=== PATIENT | female | born 2000 | race Hispanic/Latino ===

== ENCOUNTER 2023-01-12 13:47 | Outpatient (CLI) | payer BC | END 2023-01-12 13:48 | disposition home or self-care (01) | LOC: CSHULT 13:47 | PROVIDERS: ATTEND Nurse Practitioner Women's Health | DX: O09.892 Supervision of other high risk pregnancies, second trimester (principal); Z3A.34 34 weeks gestation of pregnancy | CPT/HCPCS: 76805 ==

== ENCOUNTER 2023-02-20 19:00 | Inpatient (IN) | payer BC ==
[2023-02-21] MEDS ORDERED: Misoprostol 200 MCG TAB PR PRN (00:04)
[2023-02-21] MEDS ORDERED: Lidocaine 1% (PF) 30 ML VIAL SC PRN (00:04)
[2023-02-21] MEDS ORDERED: hydrALAZINE 20 MG/ML VIAL SLOW IVP PRN (00:04)
[2023-02-21] MEDS ORDERED: Promethazine HCl 25 MG/ML VIAL IM PRN ×2 (00:04→21:28)
[2023-02-21] MEDS ORDERED: Methylergonovine 0.2 MG/ML VIAL IM PRN (00:04)
[2023-02-21] MEDS ORDERED: Ibuprofen 800 MG TAB PO PRN (00:04)
[2023-02-21] MEDS ORDERED: Diphenoxylate HCl/Atropine Tablet PO PRN (00:04)
[2023-02-21] MEDS ORDERED: HYDROcodone/Acetaminophen 5/325 mg Tablet PO PRN (00:04)
[2023-02-21] MEDS ORDERED: Tranexamic Acid 1,000 MG/10 ML VIAL IVP PRN (00:04)
[2023-02-21] MEDS ORDERED: Ondansetron PF 4 MG/2 ML Vial IVP PRN ×2 (00:04→21:28)
[2023-02-21] MEDS ORDERED: Acetaminophen 500 MG TAB PO PRN (00:04)
[2023-02-21] MEDS ORDERED: Carboprost 250 MCG/ML AMP IM PRN (00:04)
[2023-02-21] MEDS ORDERED: Misoprostol 100 MCG TAB ONE (00:17)
[2023-02-21 01:12] LABS: Mean Corpuscular HGB CONC 34.9 g/dL (32.0-36.0); Mean Corpuscular Hemoglobin 30.1 pg (27.0-33.0); Mean Corpuscular Volume 86.1 fl (81.6-98.3); Mean Platelet Volume 11.2 fl (7.4-10.4); Platelet Count 269 10x3/uL (150-450); RBC Distribution Width 12.6 % (11.5-14.5); Red Blood Cell (RBC) Count 4.32 10x6/uL (3.90-5.03); White Blood Cell (WBC) Count 9.7 10x3/uL (3.5-10.5)
[2023-02-21 01:42] VITALS: BMI 71.2
[2023-02-21] MEDS ORDERED: fentaNYL 50 mcg/mL 1 mL Vial SLOW IVP PRN (01:42)
[2023-02-21 01:43] LABS: Syphilis Antibody Nonreactive (Nonreactive); Syphilis Antibody Index 0.04 S/CO (<1.00 Non-Reactive)
[2023-02-21 01:45] LABS: HBSAg Index 0.17 S/CO (0-0.99); Hep B Surf Ag - L&D Non-Reactive S/CO (NonReactive)
[2023-02-21] MEDS ORDERED: NS w/ Oxytocin 30 units 500 ML IV SCH ×3 (02:00)
[2023-02-21] MEDS ORDERED: Lactated Ringer's 1,000 ML IV SCH (02:00)
[2023-02-21] MEDS ORDERED: Penicillin G Potassium 5 MILL.UNITS VIAL ONE ×2 (03:56→18:07)
[2023-02-21] MEDS ORDERED: Fentanyl 2 mcg/Bup 0.1% Cadd 100 ML ONE (19:57)
[2023-02-21] MEDS ORDERED: Naloxone HCl 0.4 mg/ml Vial IVP PRN ×2 (21:28)
[2023-02-21] MEDS ORDERED: Moisturizing Cream (Eucerin) 113 GM JAR TOP PRN (21:28)
[2023-02-21] MEDS ORDERED: Lactated Ringer's 500 ML IV PRN (21:28)
[2023-02-21] MEDS ORDERED: ePHEDrine Sulfate 50 MG/10 ML VIAL SLOW IVP PRN (21:28)
[2023-02-21] MEDS ORDERED: diphenhydrAMINE 50 MG/ML VIAL IVP PRN (21:28)
[2023-02-21] MEDS ORDERED: Acetaminophen 325 MG TAB PO PRN (21:28)
[2023-02-21] MEDS ORDERED: Fentanyl 2 mcg/Bupivacaine 0.1% Cassette 100 ML EPIDURAL SCH (21:30)
[2023-02-21] MEDS ORDERED: Communication Order-Pharmacy FS SCH (21:30)
[2023-02-22] MEDS ORDERED: CEFAZOLIN 2 GM VIAL ONE (05:33)
[2023-02-22] MEDS ORDERED: Azithromycin 500 MG VIAL ONE ×2 (05:33→07:53)
[2023-02-22] MEDS ORDERED: PHENYLEPHRINE-NS 100 MCG/ML 10 ML SYRINGE ONE (08:04)
[2023-02-22] MEDS ORDERED: Bupivacaine 0.75% W/DEXTROSE 8.25% 2 ML AMP ONE (08:04)
[2023-02-22] MEDS ORDERED: Oxytocin 10 UNITS/ML VIAL ONE (08:04)
[2023-02-22] MEDS ORDERED: Phenylephrine 40 MG/NS 250 ML 250 ML ONE (08:05)
[2023-02-22] MEDS ORDERED: Ondansetron PF 4 MG/2 ML Vial ONE (08:08)
[2023-02-22] MEDS ORDERED: Dexamethasone 4 mg/ml Vial ONE (08:08)
[2023-02-22] MEDS ORDERED: Morphine PF 10 MG/10 ML VIAL ONE (08:16)
[2023-02-22] MEDS ORDERED: Ketamine 50 MG/ML (10ML VIAL) ONE ×2 (09:51→11:11)
[2023-02-22] MEDS ORDERED: PROPOFOL 20 ML ONE (09:51)
[2023-02-22] MEDS ORDERED: Succinylcholine 200 MG/10 ml SYRINGE FS ONE (09:52)
[2023-02-22] MEDS ORDERED: Midazolam HCl 2 mg/2 ml Vial ONE (09:54)
[2023-02-22] MEDS ORDERED: Ondansetron PF 4 MG/2 ML Vial IVP PRN ×2 (10:21→13:46)
[2023-02-22] MEDS ORDERED: Zolpidem Tartrate 5 MG TAB PO PRN (10:21)
[2023-02-22] MEDS ORDERED: Naloxone HCl 0.4 mg/ml Vial IV PRN (10:21)
[2023-02-22] MEDS ORDERED: FENTANYL 500 MCG/10 ML VIAL 1,000 MCG in Sodium Chloride 0.9% 30 ML IV PRN (10:21)
[2023-02-22] MEDS ORDERED: Promethazine HCl 25 MG/ML VIAL IM PRN ×2 (10:21→13:46)
[2023-02-22] MEDS ORDERED: diphenhydrAMINE 50 MG/ML VIAL IVP PRN (10:21)
[2023-02-22] MEDS ORDERED: diphenhydrAMINE 50 MG/ML VIAL IM PRN (10:21)
[2023-02-22] MEDS ORDERED: diphenhydrAMINE 25 MG CAP PO PRN ×2 (10:21→13:46)
[2023-02-22] MEDS ORDERED: Fentanyl 100 MCG/2 ML VIAL SLOW IVP PRN (10:22)
[2023-02-22] MEDS ORDERED: Meperidine HCl/PF 25 MG/ML VIAL SLOW IVP PRN (10:22)
[2023-02-22] MEDS ORDERED: Ondansetron HCl/PF 4 MG/2 ML Vial IVP PRN (10:22)
[2023-02-22] MEDS ORDERED: Fentanyl 100 MCG/2 ML VIAL ONE (10:26)
[2023-02-22] MEDS ORDERED: Ketorolac Tromethamine 30 MG/ML VIAL ONE (10:29)
[2023-02-22] MEDS ORDERED: Communication Order-Pharmacy FS SCH (10:30)
[2023-02-22] MEDS ORDERED: Ketorolac Tromethamine 30 MG/ML VIAL IVP SCH (10:30)
[2023-02-22] MEDS ORDERED: Bupivacaine 0.25% HCL 30 ML VIAL ONE (11:00)
[2023-02-22] MEDS ORDERED: Lanolin Ointment 7 GM TUBE TOP PRN (13:46)
[2023-02-22] MEDS ORDERED: Boostrix 0.5 ML (Tdap) VIAL (>/=7 yrs of age) IM ONE (13:46)
[2023-02-22] MEDS ORDERED: Meperidine HCl/PF 25 MG/ML VIAL IM PRN (13:46)
[2023-02-22] MEDS ORDERED: hydrALAZINE 20 MG/ML VIAL SLOW IVP PRN (13:46)
[2023-02-22] MEDS ORDERED: Bisacodyl 10 MG SUPP PR PRN (13:46)
[2023-02-22] MEDS ORDERED: Prenatal Vitamin 1 TAB PO SCH (14:00)
[2023-02-22] MEDS ORDERED: Docusate 100 MG CAP PO SCH (14:00)
[2023-02-22] MEDS ORDERED: Ferrous Sulfate 325 MG TAB PO SCH (14:00)
[2023-02-22] MEDS: Ibuprofen 800 MG TAB PO SCH ×2 (15:01→21:58)
[2023-02-22] MEDS: Misoprostol 100 MCG TAB VAG SCH (15:02)
[2023-02-22] MEDS: Ferrous Sulfate 325 MG TAB PO SCH (21:54)
[2023-02-22] MEDS: Docusate 100 MG CAP PO SCH (21:54)
[2023-02-23 04:00] LABS: Hemoglobin 10.6 g/dL (12.0-15.5); Mean Corpuscular HGB CONC 34.1 g/dL (32.0-36.0); Mean Corpuscular Hemoglobin 29.7 pg (27.0-33.0); Mean Corpuscular Volume 87.1 fl (81.6-98.3); Mean Platelet Volume 11.3 fl (7.4-10.4); Platelet Count 226 10x3/uL (150-450); RBC Distribution Width 12.5 % (11.5-14.5); Red Blood Cell (RBC) Count 3.57 10x6/uL (3.90-5.03); White Blood Cell (WBC) Count 9.8 10x3/uL (3.5-10.5)
[2023-02-23] MEDS: Ibuprofen 800 MG TAB PO SCH ×3 (05:41→21:37)
[2023-02-23] MEDS: Ferrous Sulfate 325 MG TAB PO SCH ×2 (08:59→21:37)
[2023-02-23] MEDS: Docusate 100 MG CAP PO SCH ×2 (09:01→21:37)
[2023-02-23] MEDS: Simethicone Chewable 80 MG TAB PO PRN ×3 (09:01→22:07)
[2023-02-23] MEDS: Prenatal Vitamin 1 TAB PO SCH (09:01)
[2023-02-23] MEDS: HYDROcodone/Acetaminophen 5/325 mg Tablet PO PRN ×3 (11:10→22:07)
[2023-02-24] MEDS: Ibuprofen 800 MG TAB PO SCH ×3 (05:20→21:33)
[2023-02-24] MEDS: Simethicone Chewable 80 MG TAB PO PRN ×2 (08:23→15:48)
[2023-02-24] MEDS: Docusate 100 MG CAP PO SCH ×2 (08:23→21:32)
[2023-02-24] MEDS: Prenatal Vitamin 1 TAB PO SCH (08:23)
[2023-02-24] MEDS: Ferrous Sulfate 325 MG TAB PO SCH ×2 (08:24→21:32)
[2023-02-24] MEDS: HYDROcodone/Acetaminophen 5/325 mg Tablet PO PRN ×3 (11:34→21:33)
[2023-02-25] MEDS: Simethicone Chewable 80 MG TAB PO PRN (03:18)
[2023-02-25] MEDS: HYDROcodone/Acetaminophen 5/325 mg Tablet PO PRN ×3 (03:18→12:40)
[2023-02-25] MEDS: Ibuprofen 800 MG TAB PO SCH (06:09)
[2023-02-25] MEDS: Ferrous Sulfate 325 MG TAB PO SCH (08:38)
[2023-02-25] MEDS: Prenatal Vitamin 1 TAB PO SCH (08:38)
[2023-02-25] MEDS: Docusate 100 MG CAP PO SCH (08:38)
[2023-02-25 08:57] VITALS: BP 98/47; TEMP 98.2
== END 2023-02-25 13:25 | disposition home or self-care (01) | DRG 788 ==
LOC: CSHLD 22:56 → CSHPP 02-22 14:40
PROVIDERS: ADMIT Family Medicine; ATTEND Family Medicine
PROC: 10D00Z1 Extraction of Products of Conception, Low, Open Approach (ICD-10-PCS; principal; 2023-02-22)
PROC: 10907ZC Drainage of Amniotic Fluid, Therapeutic from Products of Conception, Via Natural or Artificial Opening (ICD-10-PCS; 2023-02-22)
PROC: 3E0P7VZ Introduction of Hormone into Female Reproductive, Via Natural or Artificial Opening (ICD-10-PCS; 2023-02-22)
PROC: 3E0DXGC Introduction of Other Therapeutic Substance into Mouth and Pharynx, External Approach (ICD-10-PCS; 2023-02-22)
PROC: 3E033VJ Introduction of Other Hormone into Peripheral Vein, Percutaneous Approach (ICD-10-PCS; 2023-02-22)
DX: O99.214 Obesity complicating childbirth (principal); E66.01 Morbid (severe) obesity due to excess calories; O62.0 Primary inadequate contractions; O61.0 Failed medical induction of labor; Z3A.40 40 weeks gestation of pregnancy; Z37.0 Single live birth
CPT/HCPCS: 36415; 51702; 85027; 86780; 86850; 86900; 86901; 87340; J1100; J1650; J1885; J2250; J2274; J2405; J2590; J2704; J3010; J3490; S0020